=== PATIENT | male | born 1985 | race American Indian/Alaskan Native ===

== ENCOUNTER 2016-06-02 20:43 | Emergency (ER) | payer MEDICAID ==
[2016-06-02 21:19] LABS: BASO % 0.5 % (0.0-2.0); EOS % 0.5 % (0.0-4.0); HEMATOCRIT 42.2 % (35.0-51.0); LYMPH # 1.5 K/uL (1.0-4.3); LYMPH % 16.4 % (20.0-40.0); MEAN CORPUSCULAR HEMOGLOBIN 28.7 pg (27.0-31.0); MEAN CORPUSCULAR HGB CONC 32.6 g/dL (33.0-37.0); MEAN PLATELET VOLUME 9.8 fL (7.2-11.7); MONO # 0.8 K/uL (0.0-0.8); MONO % 9.3 % (0.0-10.0); RED CELL DISTRIBUTION WIDTH 13.8 % (11.5-14.5)
--- NOTE | 2016-06-02 21:23 | C.PDOC ---
History Of Present Illness 30 year old male presents to the ED with complaints of mid-abdominal pain, vomiting and diarrhea that began 24 hours ago and has since had multiple episodes. He states he has not taken any medication for the symptoms and has no past medical history. Patient denies any fever, chills, urinary symptoms, or sick contacts/ Time Seen by Provider: 06/02/16 21:15 Chief Complaint (Nursing): Abdominal Pain History Per: Patient History/Exam Limitations: no limitations Onset/Duration Of Symptoms: Days (1 day at time of visit) Current Symptoms Are (Timing): Still Present Location Of Pain/Discomfort: Other (mid-abdominal) Associated Symptoms: Vomiting, Diarrhea. denies: Fever, Chills Past Medical History Reviewed: Historical Data, Nursing Documentation, Vital Signs Vital Signs: Last Vital Signs Temp 98.6 F 06/03/16 01:17 Pulse 75 06/03/16 01:17 Resp 18 06/03/16 01:17 BP 132/76 06/03/16 01:17 Pulse Ox 99 06/03/16 01:17 - Medical History PMH: No Chronic Diseases Surgical History: No Surg Hx Family History: States: Unknown Family Hx - Social History Hx Alcohol Use: No Hx Substance Use: No Review Of Systems Constitutional: Negative for: Fever, Chills, Sweats Gastrointestinal: Positive for: Vomiting, Abdominal Pain, Diarrhea Genitourinary: Negative for: Dysuria, Hematuria Physical Exam - Physical Exam Appears: Non-toxic, No Acute Distress Skin: Warm, Dry Head: Normacephalic Ear(s): Bilateral: Normal Neck: Normal ROM, Supple Chest: Symmetrical, No Deformity Cardiovascular: Rhythm Regular, No Murmur Respiratory: No Rales, No Rhonchi, No Stridor, No Wheezing Gastrointestinal/Abdominal: Soft, Tenderness (mild generalized tenderness ), No Distention, No Guarding, No Rebound Extremity: Normal ROM Neurological/Psych: Oriented x3, Normal Speech, Normal Cognition ED Course And Treatment - Laboratory Results Result Diagrams: 06/02/16 21:16 06/02/16 21:16 O2 Sat by Pulse Oximetry: 96 Progress Note: Labs, IVF, Meds orderd Medical Decision Making Medical Decision Making: Labs unremarkable. Abd remained soft in the ED, Post zofran better but still with nausea, additionally reglan given Post now nausea resolved tolerated PO Plan home with meds, clinic f/u Disposition - Disposition Disposition: HOME/ ROUTINE Disposition Time: 00:56 Condition: GOOD Additional Instructions: Sip on gatoraid tonight if no vomiting tost crackers in am Return to the ED for any new or worsening symptoms Prescriptions: Ondansetron [Zofran Odt] 1 odt PO BID PRN #6 odt PRN Reason: .nausea vomiting Instructions: Abdominal Pain (ED), Acute Nausea and Vomiting (ED) - Clinical Impression Clinical Impression: Vomiting, Abdominal pain - Scribe Statement The provider has reviewed the documentation as recorded by the Bkibmarcelle Barragan All medical record entries made by the Edy were at my direction and personally dictated by me. I have reviewed the chart and agree that the record accurately reflects my personal performance of the history, physical exam, medical decision making, and the department course for this patient. I have also personally directed, reviewed, and agree with the discharge instructions and disposition.
[2016-06-02 21:26] LABS: CHLORIDE 102 mmol/L (98-107)
[2016-06-02 21:27] LABS: POTASSIUM 3.4 mmol/L (3.6-5.2); SODIUM 137 mmol/L (132-148)
[2016-06-02 21:29] LABS: ALB/GLOB RATIO 1.5 (1.0-2.1); AMYLASE 106 U/L (30-110); AST/SGOT 25 U/L (17-59); BILIRUBIN,TOTAL 0.6 mg/dL (0.2-1.3); BLOOD UREA NITROGEN 12 mg/dL (9-20); CARBON DIOXIDE 22 mmol/L (22-30); GFR AFRICAN-AMERICAN > 60; TOTAL PROTEIN 7.2 g/dL (6.3-8.3)
[2016-06-02] MEDS ORDERED: Sodium Chloride 0.9% 1,000 ML IV ONE ×3 (21:29→23:17)
[2016-06-02 21:30] LABS: ALKALINE PHOSPHATASE 67 U/L (38-126); ALT/SGPT 28 U/L (21-72); CALCIUM 9.1 mg/dl (8.6-10.4); GLUCOSE,RANDOM 116 mg/dL (75-110)
[2016-06-02] MEDS ORDERED: Sodium Chloride 0.9% 1,000 ML ONE ×2 (21:42→23:26)
[2016-06-03 01:19] VITALS: BP 132/76; PULSE 75; RESP 18; TEMP 98.6
[2016-06-03 16:03] VITALS: O2SAT 96
== END 2016-06-03 01:18 | disposition home or self-care (01) ==
LOC: C.ER 20:43
DX: R11.10 Vomiting, unspecified (principal); R10.9 Unspecified abdominal pain
CPT/HCPCS: 80053; 82150; 83690; 85025; 96361; 96374; 96375; 96376; 99284; J1885; J2405; J2765; J7040

== ENCOUNTER 2018-02-05 21:37 | Emergency (ER) | payer MEDICARE, MEDICAID ==
[2018-02-05] MEDS ORDERED: Albuterol-Ipratrop 3 mg / 0.5 (3 ml) UD ONE ×2 (22:08→22:27)
[2018-02-05] MEDS ORDERED: Albuterol-Ipratrop 3 mg / 0.5 (3 ml) UD INH STA ×3 (22:17→22:18)
--- NOTE | 2018-02-05 22:21 | C.PDOC ---
History Of Present Illness 32 year old male presents to the ER with a complaint of SOB and wheezing. Patient has a Hx of bronchitis in the past. Denies fever or chest pain. Chief Complaint (Nursing): Shortness Of Breath History Per: Patient History/Exam Limitations: no limitations Onset/Duration Of Symptoms: Days Current Symptoms Are (Timing): Still Present Current Respiratory Medications: See Home Med List Associated Symptoms: denies: Fever, Chest Pain Recent travel outside of the [place]: No Past Medical History Reviewed: Historical Data, Nursing Documentation, Vital Signs Vital Signs: Last Vital Signs Temp 97.7 F 02/05/18 22:07 Pulse 82 02/05/18 22:07 Resp 20 02/05/18 22:07 BP 161/105 H 02/05/18 22:07 Pulse Ox 96 02/05/18 22:07 Family History: States: Unknown Family Hx - Social History Hx Alcohol Use: No Hx Substance Use: No - Immunization History Hx Tetanus Toxoid Vaccination: No Hx Influenza Vaccination: No Hx Pneumococcal Vaccination: No Review Of Systems Constitutional: Negative for: Fever, Chills Cardiovascular: Negative for: Chest Pain, Palpitations Respiratory: Positive for: Shortness of Breath, Wheezing Gastrointestinal: Negative for: Nausea, Vomiting Neurological: Negative for: Weakness, Numbness Physical Exam - Physical Exam Appears: Non-toxic Skin: Normal Color, Warm, Dry Head: Atraumatic, Normacephalic Eye(s): bilateral: Normal Inspection Oral Mucosa: Moist Chest: Symmetrical, No Tenderness Cardiovascular: Rhythm Regular Respiratory: No Rales, Rhonchi, Wheezing (Expiratory), Other (Mildly dyspneic) Gastrointestinal/Abdominal: Soft, No Tenderness Back: No CVA Tenderness Neurological/Psych: Oriented x3, Normal Speech ED Course And Treatment - Laboratory Results Result Diagrams: 02/05/18 22:41 02/05/18 22:41 ECG: Interpreted By Me, Viewed By Me ECG Rhythm: Sinus Rhythm, Nonspecific Changes ECG Interpretation: No Acute Changes, Abnormal Interpretation Of ECG: NSR, non-spc. ST-T changes Rate From EC O2 Sat by Pulse Oximetry: 96 (room air) Pulse Ox Interpretation: Normal - Radiology CXR: Interpreted by Me, Viewed By Me CXR Interpretation: Yes: No Acute Disease, Other (normal chest film). No: Infiltrates Progress Note: EKG, blood work, and CXR ordered. Duoneb and solumedrol administered. Disposition Counseled Patient/Family Regarding: Diagnosis - Disposition Referrals: [facility] [Outside] Disposition: HOME/ ROUTINE Disposition Time: 01:07 Condition: STABLE Prescriptions: Albuterol HFA [Ventolin HFA 90 mcg/actuation (8 g)] 2 puff IH [id number] #1 spray Methylprednisolone [Medrol Dose Pack (21 tabs)] 4 mg PO DAILY #21 mg Instructions: Asthma in Adults, Medicines for Asthma Forms: Patient Engagement Systems (Croatian) - POA Present On Arrival: None - Clinical Impression Clinical Impression: Bronchitis, Asthma - Scribe Statement The provider has reviewed the documentation as recorded by the Scribe Randall Carrera All medical record entries made by the Scribe were at my direction and personally dictated by me. I have reviewed the chart and agree that the record accurately reflects my personal performance of the history, physical exam, medical decision making, and the department course for this patient. I have also personally directed, reviewed, and agree with the discharge instructions and disposition.
[2018-02-05 22:46] LABS: BASO # 0.1 K/uL (0.0-0.2); BASO % 0.6 % (0.0-2.0); EOS # 0.4 K/uL (0.0-0.7); EOS % 5.3 % (0.0-4.0); HEMOGLOBIN 14.5 g/dL (12.0-18.0); LYMPH % 25.7 % (20.0-40.0); MEAN CELL VOLUME 89.6 fL (80.0-94.0); MEAN CORPUSCULAR HEMOGLOBIN 29.1 pg (27.0-31.0); MEAN CORPUSCULAR HGB CONC 32.4 g/dL (33.0-37.0); MEAN PLATELET VOLUME 8.8 fL (7.2-11.7); MONO % 12.1 % (0.0-10.0); NEUT # 4.5 K/uL (1.8-7.0); NEUT % 56.3 % (50.0-75.0); RBC 4.99 Mil/uL (4.40-5.90); RED CELL DISTRIBUTION WIDTH 13.4 % (11.5-14.5)
[2018-02-05 23:24] LABS: ALB/GLOB RATIO 1.4 (1.0-2.1)
[2018-02-05 23:38] LABS: ALT/SGPT 28 U/L (21-72); AST/SGOT 28 U/L (17-59); BLOOD UREA NITROGEN 19 mg/dL (9-20); GFR NON-AFRICAN AMERICAN > 60
[2018-02-05 23:45] LABS: B-TYPE NATRIURETIC PEPTIDE 17.3 pg/mL (0-450)
[2018-02-06 01:37] VITALS: BP 148/84; PULSE 88; RESP 22; TEMP 98; O2SAT 97
--- NOTE | 2018-02-06 09:37 | RAD ---
Date of service: 02/05/2018 HISTORY: SOB/ asthma COMPARISON: No prior. TECHNIQUE: Chest PA and lateral FINDINGS: LUNGS: Slight increased and coarsened interstitial markings with a few scattered peribronchial cuffing changes; rule out sequela of reactive/inflammatory airway disease or viral illness.. PLEURA: No significant pleural effusion identified. No pneumothorax apparent. CARDIOVASCULAR: No aortic atherosclerotic calcification present. Normal cardiac size. No pulmonary vascular congestion. OSSEOUS STRUCTURES: No significant abnormalities. VISUALIZED UPPER ABDOMEN: Normal. OTHER FINDINGS: None. IMPRESSION: No active disease.
--- NOTE | 2018-02-06 11:05 | CARD ---
APPROVED REPORT Date of service: 02/06/2018 EKG Measurement Heart [id number] <Conclusion> Normal sinus rhythm Nonspecific ST abnormality Abnormal ECG
== END 2018-02-06 01:35 | disposition home or self-care (01) ==
LOC: C.ER 21:37
DX: J45.909 Unspecified asthma, uncomplicated (principal)
CPT/HCPCS: 71046; 80053; 83880; 85025; 85378; 93005; 94150; 94640; 96374; 99284; J2930